=== PATIENT | male | born 1960 | race Caucasian/White ===

== ENCOUNTER → 2018-01-24 | Outpatient (CLI) | payer OTHER ==
--- NOTE | 2018-01-24 12:01 | MRI ---
HISTORY: 57-year-old male with low back pain radiating into both legs. Study: MRI of the lumbar spine Comparison: Previous MRI of the lumbar spine from 07/04/2013 Technique: Multiplanar multi-sequence MRI of the lumbar spine was obtained. Sagittal T1, sagittal T2 , and stir weighted images, axial T1, and axial T2 images were obtained. Findings: The lumbar spine demonstrates normal alignment with the expected signal characteristics of the bone m arrow. The conus of the cord terminates normally T12 -- L1: No significant disc bulge or protrusion. Spinal canal and neural foramina are widely paten t L1 -- L2: No significant disc bulge or protrusion. Spinal canal and neural foramina are widely patent L2 -- L3: No significant disc bulge or protrusion. Spinal canal and neural foramina are widely patent . L3 -- L4: No significant disc bulge or protrusion. Spinal canal and neural foramina are widely patent . L4 -- L5: Mild right-sided disc bulging results in mild encroachment on the right neural foramen. Spi nal canal and left neural foramen are patent however. L5 -- S1: Marked narrowing of the L5-S1 disc space is again seen. Broad-base posterior and left-sided disc protrusion is again noted resulting in a moderate degree of bilateral neuroforaminal compromise . Findings are similar to those noted on the previous exam from 07/04/2013. IMPRESSION: No significant findings are at the L5-S1 level where a broad-based posterior and left-sided disc prot rusion results in a moderate degree of bilateral neural foraminal encroachment. These findings are si milar to those noted on the exam from 07/04/2013. Reported By:
== END | disposition home or self-care (01) ==
LOC: RAD 07:57
PROVIDERS: ATTEND Internal Medicine
DX: M25.552 Pain in left hip (principal); M25.551 Pain in right hip; M51.26 Other intervertebral disc displacement, lumbar region; M51.27 Other intervertebral disc displacement, lumbosacral region
CPT/HCPCS: 72148